=== PATIENT | female | born 1990 | race African-American/Black ===

== ENCOUNTER 2016-11-12 18:09 | Emergency (ER) | payer OTHER ==
[~2016-11-12] VITALS: Ht 154.9 cm; Wt 85.7 kg
[2016-11-12 18:55] LABS: BASO # 0.1 10*3/uL (0.0-0.1); BASO % 0.4 % (0.0-1.0); EOS # 0.2 10*3/uL (0.0-0.4); EOS % 1.5 % (1.0-4.0); HEMATOCRIT 43.5 % (37.0-47.0); HEMOGLOBIN 14.1 g/dl (12.0-16.0); IG # 0.1 10*3/uL (0.0-0.1); LYMPH % 14.6 % (27.0-41.0); MEAN CELL VOLUME 86.3 fl (81.0-99.0); MEAN CORPUSCULAR HGB CONC 32.4 g/dl (33.0-37.0); MEAN PLATELET VOLUME 10.4 fl (9.6-12.3); MONO # 0.8 10*3/uL (0.1-1.0); MONO % 5.5 % (3.0-9.0); NEUT # 10.8 10*3/uL (2.3-7.9); NEUT % 77.4 % (47.0-73.0); PLATELET COUNT AUTOMATED 273 10*3/uL (130-400); RED BLOOD COUNT 5.04 10*6/uL (4.10-5.10); WHITE BLOOD COUNT 13.9 10*3/uL (4.8-10.8)
[2016-11-12 19:06] LABS: BILIRUBIN NEGATIVE (NEGATIVE); BLOOD TRACE-INTACT (NEGATIVE); CLARITY SL CLOUDY (CLEAR); COLOR YELLOW (YELLOW); GLUCOSE NEGATIVE (NEGATIVE); KETONE NEGATIVE (NEGATIVE); LEUKO ESTERASE NEGATIVE (NEGATIVE); NITRITE NEGATIVE (NEGATIVE); PH 6.5 (5.0-9.0); PROTEIN TRACE (NEGATIVE); SPECIFIC GRAVITY 1.025 (1.005-1.030); UROBILINOGEN 0.2 E.U./dl (0.2-1.0)
[2016-11-12 19:09] LABS: ALBUMIN 3.9 gm/dl (3.1-4.5); ALKALINE PHOSPHATASE 92 U/L (45-117); BILIRUBIN, TOTAL 0.2 mg/dl (0.2-1.0); BUN 9 mg/dl (7-24); CARBON DIOXIDE 26 mmol/L (21-32); CHLORIDE 112 mmol/L (98-107); EST GLOM FILT AFRICAN AMERICAN > 60 ml/min; GLUCOSE 95 mg/dL (65-99); POTASSIUM 4.1 mmol/L (3.5-5.1); SGOT/AST 43 IU/L (3-35); SGPT/ALT 29 U/L (12-78); SODIUM 146 mmol/L (136-145); TOTAL PROTEIN 7.7 gm/dL (6.4-8.2)
[2016-11-12 19:15] LABS: BACTERIA 2+; MUCOUS 1+; URINE REFLEX COMMENT YES (NO)
== END 2016-11-12 21:11 | disposition home or self-care (01) ==
LOC: ED 18:09
PROVIDERS: Registered Nurse
DX: K80.20 Calculus of gallbladder without cholecystitis without obstruction (principal); F17.200 Nicotine dependence, unspecified, uncomplicated

== ENCOUNTER 2018-10-14 08:51 | Emergency (ER) | payer OTHER ==
[~2018-10-14] VITALS: Ht 154.9 cm; Wt 83.9 kg
[2018-10-14 09:08] LABS: BILIRUBIN NEGATIVE (NEGATIVE); BLOOD NEGATIVE (NEGATIVE); CLARITY SL CLOUDY (CLEAR); COLOR YELLOW (YELLOW); GLUCOSE NEGATIVE (NEGATIVE); KETONE NEGATIVE (NEGATIVE); LEUKO ESTERASE 1+ (NEGATIVE); NITRITE NEGATIVE (NEGATIVE); PH 6.5 (5.0-9.0)
[2018-10-14 09:28] LABS: BACTERIA 1+; EPITHELIAL CELLS 21-30; WBC 16-20 wbc/hpf (0-5)
[2018-10-14] MEDS ORDERED: MACROBID100 M1 PO (10:11)
[2018-10-14] MEDS ORDERED: PYRIDIUM200 M1 PO (10:11)
[2018-10-16 06:08] LABS: GONOCOCCUS BY NAA Negative (Negative)
== END 2018-10-14 10:20 | disposition home or self-care (01) ==
LOC: ED 08:51
PROVIDERS: Emergency Medicine; Nurse Practitioner Family
DX: N39.0 Urinary tract infection, site not specified (principal); N89.8 Other specified noninflammatory disorders of vagina; Z11.3 Encounter for screening for infections with a predominantly sexual mode of transmission; F17.200 Nicotine dependence, unspecified, uncomplicated

== ENCOUNTER 2019-04-29 12:24 | Inpatient (IN) | payer OTHER ==
[~2019-04-29] VITALS: Ht 154.9 cm; Wt 80.0 kg
[~2019-04-29 12:24] MED LIST: MACROBID100 M1 PO; PYRIDIUM200 M1 PO
[2019-04-29 12:25] VITALS: BP 160/90
[2019-04-29 13:03] LABS: BILIRUBIN NEGATIVE (NEGATIVE); BLOOD 2+ (NEGATIVE); CLARITY SL CLOUDY (CLEAR); COLOR YELLOW (YELLOW); GLUCOSE NEGATIVE (NEGATIVE); KETONE NEGATIVE (NEGATIVE); LEUKO ESTERASE NEGATIVE (NEGATIVE); NITRITE NEGATIVE (NEGATIVE); SPECIFIC GRAVITY 1.015 (1.005-1.030)
[2019-04-29 13:14] LABS: BACTERIA 2+; EPITHELIAL CELLS 15-20; MUCOUS 2+
[2019-04-29 13:15] LABS: URINE AMPHETAMINES < 1000 (1000ng/ml); URINE BARBITURATES < 200 (200ng/ml); URINE BENZODIAZEPINES < 200 (200ng/ml); URINE CANNABINOIDS (THC) > 50 (50ng/ml); URINE COCAINE < 300 (300ng/ml); URINE METHADONE < 300 (300ng/ml); URINE OPIATES < 300 (300ng/ml)
[2019-04-29 13:18] LABS: URINE PHENCYCLIDINE < 25 (25ng/ml)
--- NOTE | 2019-04-29 13:59 | NUR ---
PATIENT WISHES TO STAY IN HER PERSONAL CLOTHES.
[2019-04-29 14:20] VITALS: BP 154/98
--- NOTE | 2019-04-29 14:27 | NUR ---
Time: 1419 A 28 year old FEMALE admitted to under services of SONDRA KING DO. Pt. arrived via wheel chair from ER. Chief complaint: HERE FOR ADMISSION TO [facility]. ALEX JAUREGUI
[2019-04-29 14:30] VITALS: BP 154/98
--- NOTE | 2019-04-29 15:04 | NUR ---
PATIENT MEETS [facility]. [facility] STAFF WILL FOLLOW UP WITH PATIENT. COCO WENIBERG B.A. EMERGENCY VEHICLE DISPATCHER
[2019-04-29 15:28] LABS: BASO % 0.4 % (0.0-1.0); EOS % 0.1 % (1.0-4.0); HEMATOCRIT 44.1 % (37.0-47.0); HEMOGLOBIN 13.6 g/dl (12.0-16.0); LYMPH # 1.3 10*3/uL (1.3-4.4); LYMPH % 16.1 % (27.0-41.0); MEAN CELL VOLUME 85.3 fl (81.0-99.0); MEAN CORPUSCULAR HGB 26.3 pg (27.0-31.0); MEAN CORPUSCULAR HGB CONC 30.8 g/dl (33.0-37.0); MEAN PLATELET VOLUME 10.4 fl (9.6-12.3); MONO # 0.4 10*3/uL (0.1-1.0); MONO % 5.3 % (3.0-9.0); NEUT # 6.3 10*3/uL (2.3-7.9); NEUT % 77.6 % (47.0-73.0); PLATELET COUNT AUTOMATED 262 10*3/uL (130-400); RED BLOOD COUNT 5.17 10*6/uL (4.10-5.10); RED CELL DISTRI WIDTH 12.6 % (0-14.5); WHITE BLOOD COUNT 8.1 10*3/uL (4.8-10.8)
[2019-04-29 15:44] LABS: ALBUMIN 3.6 gm/dl (3.1-4.5); ALKALINE PHOSPHATASE 75 U/L (45-117); BUN 7 mg/dl (7-24); CHLORIDE 108 mmol/L (98-107); CREATININE 0.78 mg/dL (0.55-1.02); POTASSIUM 4.7 mmol/L (3.5-5.1); SGOT/AST 37 IU/L (3-35); SGPT/ALT 57 U/L (12-78); SODIUM 140 mmol/L (136-145)
[2019-04-29 15:48] LABS: BETA-HCG, QUANT < 1.0 mIU/mL (1-3); ETHYL ALCOHOL < 3.0 mg/dl (<3)
--- NOTE | 2019-04-29 15:55 | NUR ---
Medicated with vistaril for anxiety and robaxin for muscle aches.
[2019-04-29 16:00] VITALS: BP 142/66
--- NOTE | 2019-04-29 16:10 | NUR ---
[facility] STAFF SPOKE WITH PATIENT. [facility] STAFF PROVIDED PATIENT WITH REFERRAL OPTIONS. [facility] STAFF WILL FOLLOW BACK UP WITH PATIENT. COCO WEINBERG B.A. SUPERINTENDENT FACTORY
--- NOTE | 2019-04-29 17:00 | NUR ---
Received call from Irma Stinson working on fourth floor where pt boyfriend is. States that pt may visit her boy friend if she is escorted by security there and back. Irma states she discussed this with Dr. Estrada.
--- NOTE | 2019-04-29 18:55 | NUR ---
DR TERESA MADE AWARE OF SUBOXONE BEING ORDERED INSTEAD OF SUBUTEX FOR PATIENT
--- NOTE | 2019-04-29 18:59 | NUR ---
DR TERESA CALLED BACK AND STATED "I BELIEVE THE PATIENT WILL BE FINE GETTING THE SUBOXONE INSTEAD OF SUBUTEX"
[2019-04-29 20:00] VITALS: BP 153/89
--- NOTE | 2019-04-29 20:00 | NUR ---
PATIENT REMINDED TO NOT LEAVE THE FLOOR. VERBALIZED UNDERSTANDING
--- NOTE | 2019-04-29 22:03 | NUR ---
MEDICATED WITH PRN VISTARIL,MORTIN,ROBAXIN,REQUIP,AND TRAZADONE FOR WITHDRAWAL SYMPTOMS. WILL MONITOR
[2019-04-30] VITALS: BP 134/67
--- NOTE | 2019-04-30 03:48 | NUR ---
RESTING IN BED WITH NO NEEDS MADE. BED IN LOWEST POSITION, CALL LIGHT IN REACH
--- NOTE | 2019-04-30 05:30 | NUR ---
MEDICATED WITH PRN MOTRIN,ROBAXIN AND VISTARIL FOR WITHDRAWAL SYMPTOMS. WILL MONITOR
[2019-04-30 08:00] VITALS: BP 130/69
--- NOTE | 2019-04-30 08:26 | NUR ---
PT RESTING IN BED. RESP-EASY AND REGULAR. DENIES ANY COMPLAINTS AT THIS TIME. TOLERATED ROUTINE MED WITH NO PROBLEM. CALL LIGHT IN REACH. SEE SHIFT ASSESSMENT.
[2019-04-30 12:00] VITALS: BP 134/64
--- NOTE | 2019-04-30 12:07 | NUR ---
MEDICATED WITH REQUIP FOR RESTLESS LEGS, ROBAXIN FOR MUSCLE ACHES AND VISTARIL FOR ANXIETY SEE EMAR. CALL LIGHT IN REACH.
--- NOTE | 2019-04-30 12:56 | NUR ---
Patient resting. Responding to scheduled medications with fewer complaints of pain and anxiety.
--- NOTE | 2019-04-30 13:07 | NUR ---
PT RESTING IN BED. TOLERATED ROUTINE SUBUTEX PER ORDER FOR WITHDRAWAL SYMPTOMS. SEE EMAR. CALL LIGHT IN REACH.
--- NOTE | 2019-04-30 14:01 | NUR ---
PATIENT IS WANTING TO FOLLOW UP WITH [employer] [facility] IN [place] FOR HER AFTERCARE PLAN. PATIENT IS WANTED MEDICATION ASSISTED TREATMENT. PATIENT AGREES AND UNDERSTANDS HER AFTERCARE PLAN. COCO WEINBERG B.A. ATTENDANCE SECRETARY
--- NOTE | 2019-04-30 14:33 | NUR ---
PT AMBULATORY OFF THE FLOOR WITH BOYFRIEND. LEFT AMA PAPER SIGNED. NOTIFIED COORDINATOR OF LIBRARY SERVICES AND GIANLUCA HAY.
== END 2019-04-30 14:35 | disposition left against medical advice (07) | DRG 770 ==
LOC: ED 12:24 → EDHOLD 14:04 → 4E 14:04
PROVIDERS: Emergency Medicine; Family Medicine; ADMIT Internal Medicine
DX: F11.23 Opioid dependence with withdrawal (principal); E87.8 Other disorders of electrolyte and fluid balance, not elsewhere classified; E44.0 Moderate protein-calorie malnutrition; F17.200 Nicotine dependence, unspecified, uncomplicated; R74.0 Nonspecific elevation of levels of transaminase and lactic acid dehydrogenase [LDH]; R23.2 Flushing; F39 Unspecified mood [affective] disorder; D72.9 Disorder of white blood cells, unspecified; D72.820 Lymphocytosis (symptomatic); R73.9 Hyperglycemia, unspecified; R31.9 Hematuria, unspecified; R61 Generalized hyperhidrosis; F12.90 Cannabis use, unspecified, uncomplicated; F19.90 Other psychoactive substance use, unspecified, uncomplicated; Z53.21 Procedure and treatment not carried out due to patient leaving prior to being seen by health care provider; Z68.33 Body mass index [BMI] 33.0-33.9, adult; Z79.899 Other long term (current) drug therapy; Z87.440 Personal history of urinary (tract) infections; Z98.891 History of uterine scar from previous surgery; Z82.49 Family history of ischemic heart disease and other diseases of the circulatory system; Z83.3 Family history of diabetes mellitus

== ENCOUNTER 2019-07-08 10:29 | Inpatient (IN) | payer OTHER ==
[~2019-07-08] VITALS: Ht 154.9 cm; Wt 81.8 kg
[2019-07-08 10:32] VITALS: BP 187/122
[2019-07-08 11:12] LABS: BILIRUBIN NEGATIVE (NEGATIVE); BLOOD NEGATIVE (NEGATIVE); CLARITY CLOUDY (CLEAR); COLOR YELLOW (YELLOW); GLUCOSE NEGATIVE (NEGATIVE); KETONE NEGATIVE (NEGATIVE); LEUKO ESTERASE NEGATIVE (NEGATIVE); NITRITE NEGATIVE (NEGATIVE); UROBILINOGEN 0.2 E.U./dl (0.2-1.0)
[2019-07-08 11:15] LABS: BACTERIA 2+; CALCIUM OXALATE CRYSTALS 4+; EPITHELIAL CELLS 30-40
[2019-07-08 11:24] LABS: BASO # 0.1 10*3/uL (0.0-0.1); BASO % 0.8 % (0.0-1.0); EOS # 0.1 10*3/uL (0.0-0.4); EOS % 0.9 % (1.0-4.0); HEMATOCRIT 47.9 % (37.0-47.0); HEMOGLOBIN 14.8 g/dl (12.0-16.0); LYMPH # 0.8 10*3/uL (1.3-4.4); LYMPH % 12.3 % (27.0-41.0); MEAN CELL VOLUME 85.1 fl (81.0-99.0); MEAN CORPUSCULAR HGB 26.3 pg (27.0-31.0); MEAN CORPUSCULAR HGB CONC 30.9 g/dl (33.0-37.0); MEAN PLATELET VOLUME 10.7 fl (9.6-12.3); MONO # 0.6 10*3/uL (0.1-1.0); MONO % 8.6 % (3.0-9.0); NEUT # 4.9 10*3/uL (2.3-7.9); NEUT % 75.9 % (47.0-73.0); PLATELET COUNT AUTOMATED 253 10*3/uL (130-400); RED BLOOD COUNT 5.63 10*6/uL (4.10-5.10); RED CELL DISTRI WIDTH 13.2 % (0-14.5); WHITE BLOOD COUNT 6.5 10*3/uL (4.8-10.8)
[2019-07-08 11:39] LABS: ALBUMIN 3.9 gm/dl (3.1-4.5); ALKALINE PHOSPHATASE 159 U/L (45-117); BUN 9 mg/dl (7-24); CHLORIDE 108 mmol/L (98-107); CREATININE 0.85 mg/dL (0.55-1.02); LIPASE 95 U/L (73-393); POTASSIUM 3.8 mmol/L (3.5-5.1); SGOT/AST 266 IU/L (3-35); SGPT/ALT 227 U/L (12-78); SODIUM 140 mmol/L (136-145); TOTAL PROTEIN 8.2 gm/dL (6.4-8.2)
[2019-07-08 11:42] LABS: BETA-HCG, QUANT < 1.0 mIU/mL (1-3)
[2019-07-08 13:16] VITALS: BP 170/92
[2019-07-08 14:50] VITALS: BP 150/90
[2019-07-08 20:00] VITALS: BP 137/82
[2019-07-09] VITALS (15 sets, daily range): BP systolic 142–195; BP diastolic 86–122
[2019-07-09 06:40] LABS: BASO % 0.9 % (0.0-1.0); EOS # 0.2 10*3/uL (0.0-0.4); EOS % 4.1 % (1.0-4.0); HEMATOCRIT 38.7 % (37.0-47.0); HEMOGLOBIN 11.8 g/dl (12.0-16.0); LYMPH # 0.9 10*3/uL (1.3-4.4); LYMPH % 19.9 % (27.0-41.0); MEAN CELL VOLUME 85.6 fl (81.0-99.0); MEAN CORPUSCULAR HGB 26.1 pg (27.0-31.0); MEAN CORPUSCULAR HGB CONC 30.5 g/dl (33.0-37.0); MEAN PLATELET VOLUME 11.2 fl (9.6-12.3); MONO # 0.4 10*3/uL (0.1-1.0); MONO % 9.3 % (3.0-9.0); NEUT % 65.6 % (47.0-73.0); PLATELET COUNT AUTOMATED 208 10*3/uL (130-400); RED BLOOD COUNT 4.52 10*6/uL (4.10-5.10); RED CELL DISTRI WIDTH 13.4 % (0-14.5); WHITE BLOOD COUNT 4.6 10*3/uL (4.8-10.8)
[2019-07-09 07:14] LABS: BUN 4 mg/dl (7-24); CHLORIDE 112 mmol/L (98-107); CHOLESTEROL 122 mg/dL (<200); CREATININE 0.76 mg/dL (0.55-1.02); PHOSPHOROUS 3.3 mg/dL (2.5-4.9); POTASSIUM 3.8 mmol/L (3.5-5.1); SODIUM 141 mmol/L (136-145); TRIGLYCERIDES 78 mg/dl (<150); VLDL CHOLESTEROL 16 mg/dL (6-40)
[2019-07-09 07:23] LABS: HDL CHOLESTEROL 48 mg/dl (40-60); LDL CHOLESTEROL 58 mg/dL (9-159)
[2019-07-10] VITALS: BP 139/40; BP 139/90
[2019-07-10 06:14] LABS: BUN 3 mg/dl (7-24); CHLORIDE 111 mmol/L (98-107); CREATININE 0.75 mg/dL (0.55-1.02); POTASSIUM 3.2 mmol/L (3.5-5.1); SGOT/AST 418 IU/L (3-35); SGPT/ALT 429 U/L (12-78); SODIUM 142 mmol/L (136-145); TOTAL PROTEIN 6.2 gm/dL (6.4-8.2)
[2019-07-10 06:15] LABS: ALKALINE PHOSPHATASE 97 U/L (45-117); BASO # 0.1 10*3/uL (0.0-0.1); BASO % 0.8 % (0.0-1.0); EOS # 0.2 10*3/uL (0.0-0.4); EOS % 2.7 % (1.0-4.0); HEMOGLOBIN 13.3 g/dl (12.0-16.0); LYMPH % 17.5 % (27.0-41.0); MEAN CELL VOLUME 84.6 fl (81.0-99.0); MEAN CORPUSCULAR HGB 26.2 pg (27.0-31.0); MEAN CORPUSCULAR HGB CONC 30.9 g/dl (33.0-37.0); MEAN PLATELET VOLUME 11.6 fl (9.6-12.3); MONO # 0.7 10*3/uL (0.1-1.0); MONO % 11.3 % (3.0-9.0); NEUT % 67.2 % (47.0-73.0); PLATELET COUNT AUTOMATED 210 10*3/uL (130-400); RED BLOOD COUNT 5.08 10*6/uL (4.10-5.10); RED CELL DISTRI WIDTH 13.6 % (0-14.5)
[2019-07-10 08:00] VITALS: BP 162/90
[2019-07-10 12:00] VITALS: BP 154/16
== END 2019-07-10 15:35 | disposition home or self-care (01) | DRG 710 ==
LOC: ED 10:29 → EDHOLD 13:48 → 5E 13:48 → 4E 07-09 15:37
PROVIDERS: Emergency Medicine; Student in an Organized Health Care Education/Training Program; Surgery; ADMIT Family Medicine
PROC: 0FT44ZZ Resection of Gallbladder, Percutaneous Endoscopic Approach (ICD-10-PCS; principal; 2019-07-09)
PROC: 0F798DZ Dilation of Common Bile Duct with Intraluminal Device, Via Natural or Artificial Opening Endoscopic (ICD-10-PCS; 2019-07-09)
PROC: BF101ZZ Fluoroscopy of Bile Ducts using Low Osmolar Contrast (ICD-10-PCS; 2019-07-09)
DX: A41.9 Sepsis, unspecified organism (principal); K80.00 Calculus of gallbladder with acute cholecystitis without obstruction; E87.2 Acidosis; K83.8 Other specified diseases of biliary tract; R74.0 Nonspecific elevation of levels of transaminase and lactic acid dehydrogenase [LDH]; E87.8 Other disorders of electrolyte and fluid balance, not elsewhere classified; R65.20 Severe sepsis without septic shock; D72.810 Lymphocytopenia; F39 Unspecified mood [affective] disorder; F17.210 Nicotine dependence, cigarettes, uncomplicated; Z83.3 Family history of diabetes mellitus; Z82.49 Family history of ischemic heart disease and other diseases of the circulatory system; Z79.899 Other long term (current) drug therapy

== ENCOUNTER 2020-06-01 06:46 | Emergency (ER) | payer OTHER | END 2020-06-01 08:48 | disposition home or self-care (01) | LOC: ED 06:46 | DX: T16.2XXA Foreign body in left ear, initial encounter (principal); X58.XXXA Exposure to other specified factors, initial encounter; Y93.89 Activity, other specified; Y92.89 Other specified places as the place of occurrence of the external cause; Y99.8 Other external cause status ==

== ENCOUNTER 2021-01-29 04:51 | Inpatient (IN) | payer OTHER ==
[~2021-01-29] VITALS: Ht 154.9 cm; Wt 82.6 kg
[2021-01-29 05:01] VITALS: BP 157/86
[2021-01-29 06:11] LABS: ALKALINE PHOSPHATASE 81 U/L (45-117); BUN 7 mg/dl (7-24); CHLORIDE 100 mmol/L (98-107); CREATININE 0.76 mg/dL (0.55-1.02); POTASSIUM 3.4 mmol/L (3.5-5.1); SGOT/AST 12 IU/L (3-35); SGPT/ALT 11 U/L (12-78); SODIUM 136 mmol/L (136-145); TOTAL PROTEIN 8.2 gm/dL (6.4-8.2)
[2021-01-29 06:13] LABS: BASO # 0.1 10*3/uL (0.0-0.1); BASO % 0.3 % (0.0-1.0); EOS % 0.1 % (1.0-4.0); HEMATOCRIT 35.1 % (37.0-47.0); LYMPH # 2.2 10*3/uL (1.3-4.4); LYMPH % 12.6 % (27.0-41.0); MEAN CELL VOLUME 77.7 fl (81.0-99.0); MEAN CORPUSCULAR HGB CONC 29.6 g/dl (33.0-37.0); MEAN PLATELET VOLUME 10.6 fl (9.6-12.3); MONO # 1.5 10*3/uL (0.1-1.0); MONO % 8.4 % (3.0-9.0); NEUT # 13.8 10*3/uL (2.3-7.9); NEUT % 77.8 % (47.0-73.0); PLATELET COUNT AUTOMATED 395 10*3/uL (130-400); RED BLOOD COUNT 4.52 10*6/uL (4.10-5.10); RED CELL DISTRI WIDTH 14.4 % (0-14.5); WHITE BLOOD COUNT 17.7 10*3/uL (4.8-10.8)
[2021-01-29 10:30] VITALS: BP 131/82
[2021-01-29 13:10] VITALS: BP 104/60
[2021-01-29 13:25] VITALS: BP 98/55
[2021-01-29 13:40] VITALS: BP 97/58
[2021-01-29 13:45] VITALS: BP 125/72
[2021-01-29] MEDS ORDERED: DOXYCYCLINE100 M3 PO (14:24)
== END 2021-01-29 15:24 | disposition home or self-care (01) | DRG 720 ==
LOC: ED 04:51 → EDHOLD 06:48 → 4E 09:43
PROVIDERS: Emergency Medicine; ADMIT Emergency Medicine; ATTEND Emergency Medicine
PROC: 0H9CXZZ Drainage of Left Upper Arm Skin, External Approach (ICD-10-PCS; principal; 2021-01-29)
DX: A41.9 Sepsis, unspecified organism (principal); L02.414 Cutaneous abscess of left upper limb; L03.114 Cellulitis of left upper limb; F11.10 Opioid abuse, uncomplicated; R03.0 Elevated blood-pressure reading, without diagnosis of hypertension; D50.9 Iron deficiency anemia, unspecified; E87.6 Hypokalemia; R70.0 Elevated erythrocyte sedimentation rate; R73.9 Hyperglycemia, unspecified; E44.0 Moderate protein-calorie malnutrition; F17.210 Nicotine dependence, cigarettes, uncomplicated; Z71.6 Tobacco abuse counseling; Z98.891 History of uterine scar from previous surgery; Z82.49 Family history of ischemic heart disease and other diseases of the circulatory system; Z90.49 Acquired absence of other specified parts of digestive tract; Z79.2 Long term (current) use of antibiotics; Z79.899 Other long term (current) drug therapy; Z83.3 Family history of diabetes mellitus; Z68.34 Body mass index [BMI] 34.0-34.9, adult

== ENCOUNTER 2021-04-05 15:54 | Emergency (ER) | payer OTHER ==
[~2021-04-05] VITALS: Ht 154.9 cm; Wt 81.6 kg
[~2021-04-05 15:54] MED LIST changes: +DOXYCYCLINE100 M3 PO
[2021-04-05 18:06] LABS: BASO # 0.1 10*3/uL (0.0-0.1); BASO % 0.8 % (0.0-1.0); EOS # 0.2 10*3/uL (0.0-0.4); EOS % 2.1 % (1.0-4.0); HEMATOCRIT 44.2 % (37.0-47.0); LYMPH # 1.5 10*3/uL (1.3-4.4); LYMPH % 18.4 % (27.0-41.0); MEAN CORPUSCULAR HGB 23.6 pg (27.0-31.0); MEAN CORPUSCULAR HGB CONC 28.1 g/dl (33.0-37.0); MEAN PLATELET VOLUME 10.3 fl (9.6-12.3); MONO # 0.8 10*3/uL (0.1-1.0); MONO % 10.3 % (3.0-9.0); NEUT # 5.4 10*3/uL (2.3-7.9); NEUT % 67.6 % (47.0-73.0); PLATELET COUNT AUTOMATED 295 10*3/uL (130-400); RED BLOOD COUNT 5.26 10*6/uL (4.10-5.10); RED CELL DISTRI WIDTH 14.7 % (0-14.5)
[2021-04-05 18:26] LABS: ALBUMIN 3.1 gm/dl (3.1-4.5); ALKALINE PHOSPHATASE 80 U/L (45-117); BUN 12 mg/dl (7-24); CHLORIDE 105 mmol/L (98-107); CREATININE 0.63 mg/dL (0.55-1.02); SGOT/AST 8 IU/L (3-35); SGPT/ALT 19 U/L (12-78); SODIUM 133 mmol/L (136-145); TOTAL PROTEIN 7.8 gm/dL (6.4-8.2)
[2021-04-05] MEDS ORDERED: DIFLUCAN150 MG PO (19:43)
[2021-04-05] MEDS ORDERED: SEPTDS PO (19:43)
[2021-04-05] MEDS ORDERED: INDOMETHACIN ER75 M1 PO (19:43)
== END 2021-04-05 19:50 | disposition home or self-care (01) ==
LOC: ED 15:54
PROVIDERS: Physician Assistant
DX: M25.462 Effusion, left knee (principal)

== ENCOUNTER 2022-02-14 00:34 | Emergency (ER) | payer OTHER ==
[~2022-02-14 00:34] MED LIST changes: +DIFLUCAN150 MG PO; +INDOMETHACIN ER75 M1 PO; +SEPTDS PO
== END 2022-02-14 03:13 | disposition home or self-care (01) ==
LOC: ED 00:34
DX: Z53.21 Procedure and treatment not carried out due to patient leaving prior to being seen by health care provider (principal)

== ENCOUNTER 2022-09-27 14:10 | Emergency (ER) | payer OTHER ==
[~2022-09-27] VITALS: Ht 152.4 cm; Wt 90.7 kg
[2022-09-27 15:24] LABS: BASO # 0.1 10*3/uL (0.0-0.1); BASO % 0.8 % (0.0-1.0); EOS % 0.2 % (1.0-4.0); LYMPH # 1.7 10*3/uL (1.3-4.4); LYMPH % 14.7 % (27.0-41.0); MEAN CELL VOLUME 76.9 fl (81.0-99.0); MEAN CORPUSCULAR HGB 23.6 pg (27.0-31.0); MEAN CORPUSCULAR HGB CONC 30.7 g/dl (33.0-37.0); MEAN PLATELET VOLUME 10.1 fl (9.6-12.3); MONO # 0.9 10*3/uL (0.1-1.0); MONO % 8.1 % (3.0-9.0); NEUT # 8.8 10*3/uL (2.3-7.9); NEUT % 75.6 % (47.0-73.0); PLATELET COUNT AUTOMATED 401 10*3/uL (130-400); RED BLOOD COUNT 5.46 10*6/uL (4.10-5.10); RED CELL DISTRI WIDTH 13.6 % (0-14.5); WHITE BLOOD COUNT 11.6 10*3/uL (4.8-10.8)
[2022-09-27 15:36] LABS: ACT PARTIAL THROMBO TIME 30.1 SECONDS (20.0-32.1)
[2022-09-27 15:42] LABS: ALKALINE PHOSPHATASE 82 U/L (46-116); BETA-HCG, QUANT < 3.0 mIU/mL (0-10); BUN 8 mg/dl (9-23); CHLORIDE 108 mmol/L (98-107); LIPASE 29 U/L (12-53); POTASSIUM 3.2 mmol/L (3.4-5.1); SGPT/ALT 11 U/L (10-49); TOTAL PROTEIN 8.5 gm/dL (6.0-8.0)
== END 2022-09-27 18:00 | disposition home or self-care (01) ==
LOC: ED 14:10
PROVIDERS: Physician Assistant
DX: I10 Essential (primary) hypertension (principal); Z90.49 Acquired absence of other specified parts of digestive tract; Z98.890 Other specified postprocedural states; Z87.891 Personal history of nicotine dependence

== ENCOUNTER 2022-12-11 14:04 | Emergency (ER) | payer OTHER ==
[~2022-12-11] VITALS: Ht 152.4 cm; Wt 90.7 kg
[~2022-12-11 14:04] MED LIST changes: +CEPHALEXIN500 M1 PO; +VANCOMYCIN1.5 GM/300 IV
[2022-12-11 14:34] LABS: BASO # 0.1 10*3/uL (0.0-0.1); EOS # 0.2 10*3/uL (0.0-0.4); EOS % 2.5 % (1.0-4.0); HEMATOCRIT 35.6 % (37.0-47.0); LYMPH # 1.9 10*3/uL (1.3-4.4); MEAN CELL VOLUME 78.8 fl (81.0-99.0); MEAN CORPUSCULAR HGB 23.5 pg (27.0-31.0); MEAN CORPUSCULAR HGB CONC 29.8 g/dl (33.0-37.0); MEAN PLATELET VOLUME 9.5 fl (9.6-12.3); MONO # 0.8 10*3/uL (0.1-1.0); MONO % 8.9 % (3.0-9.0); NEUT # 5.6 10*3/uL (2.3-7.9); NEUT % 64.3 % (47.0-73.0); PLATELET COUNT AUTOMATED 648 10*3/uL (130-400); RED BLOOD COUNT 4.52 10*6/uL (4.10-5.10); RED CELL DISTRI WIDTH 14.9 % (0-14.5); WHITE BLOOD COUNT 8.6 10*3/uL (4.8-10.8)
[2022-12-11 15:09] LABS: POTASSIUM 4.6 mmol/L (3.4-5.1); TOTAL PROTEIN 8.5 gm/dL (6.0-8.0)
== END 2022-12-11 17:13 | disposition home or self-care (01) ==
LOC: ED 14:04
PROVIDERS: Emergency Medicine
DX: R10.32 Left lower quadrant pain (principal); Z90.49 Acquired absence of other specified parts of digestive tract; Z98.890 Other specified postprocedural states; F17.200 Nicotine dependence, unspecified, uncomplicated; F19.90 Other psychoactive substance use, unspecified, uncomplicated

== ENCOUNTER → 2022-12-26 | Outpatient (CLI) | payer OTHER ==
[2022-12-26 16:08] LABS: BASO # 0.1 10*3/uL (0.0-0.1); BASO % 0.7 % (0.0-1.0); EOS # 0.2 10*3/uL (0.0-0.4); EOS % 2.8 % (1.0-4.0); HEMATOCRIT 33.7 % (37.0-47.0); LYMPH # 1.3 10*3/uL (1.3-4.4); LYMPH % 18.4 % (27.0-41.0); MEAN CELL VOLUME 77.1 fl (81.0-99.0); MEAN CORPUSCULAR HGB 23.1 pg (27.0-31.0); MEAN PLATELET VOLUME 9.8 fl (9.6-12.3); MONO # 0.7 10*3/uL (0.1-1.0); MONO % 9.8 % (3.0-9.0); NEUT # 4.6 10*3/uL (2.3-7.9); NEUT % 67.9 % (47.0-73.0); PLATELET COUNT AUTOMATED 330 10*3/uL (130-400); RED BLOOD COUNT 4.37 10*6/uL (4.10-5.10); RED CELL DISTRI WIDTH 15.7 % (0-14.5); WHITE BLOOD COUNT 6.8 10*3/uL (4.8-10.8)
== END | disposition home or self-care (01) ==
LOC: LAB 15:35
DX: I07.9 Rheumatic tricuspid valve disease, unspecified (principal)

== ENCOUNTER 2023-04-11 20:01 | Emergency (ER) | payer OTHER ==
[~2023-04-11] VITALS: Ht 152.4 cm; Wt 90.7 kg
[2023-04-11 20:42] LABS: BILIRUBIN Negative (Negative); BLOOD Negative (Negative); CLARITY Clear (Clear); COLOR Yellow (Yellow); GLUCOSE Negative (Negative); KETONE Negative (Negative); LEUKO ESTERASE Negative (Negative); NITRITE Negative (Negative); SPECIFIC GRAVITY >= 1.030 (1.001-1.030); UROBILINOGEN 0.2 E.U./dl (0.0-1.0)
[2023-04-11 20:51] LABS: BASO # 0.1 10*3/uL (0.0-0.1); BASO % 0.4 % (0.0-1.0); EOS % 0.2 % (1.0-4.0); HEMATOCRIT 36.8 % (37.0-47.0); LYMPH # 1.4 10*3/uL (1.3-4.4); LYMPH % 11.5 % (27.0-41.0); MEAN CELL VOLUME 76.3 fl (81.0-99.0); MEAN CORPUSCULAR HGB 22.4 pg (27.0-31.0); MEAN CORPUSCULAR HGB CONC 29.3 g/dl (33.0-37.0); MONO % 7.8 % (3.0-9.0); NEUT % 79.8 % (47.0-73.0); PLATELET COUNT AUTOMATED 350 10*3/uL (130-400); RED BLOOD COUNT 4.82 10*6/uL (4.10-5.10); RED CELL DISTRI WIDTH 15.2 % (0-14.5); WHITE BLOOD COUNT 12.5 10*3/uL (4.8-10.8)
[2023-04-11 20:57] LABS: MUCOUS 1+
[2023-04-11 20:58] LABS: BACTERIA 2+; WBC 16-20 wbc/hpf (0-5)
[2023-04-11 21:14] LABS: ALKALINE PHOSPHATASE 89 U/L (46-116); BUN 8 mg/dl (9-23); CHLORIDE 106 mmol/L (98-107); LIPASE 26 U/L (12-53); POTASSIUM 3.5 mmol/L (3.4-5.1); SGPT/ALT 51 U/L (5-49); TOTAL PROTEIN 8.3 gm/dL (6.0-8.0)
[2023-04-11 21:25] LABS: ACT PARTIAL THROMBO TIME 33.8 SECONDS (20.0-32.1)
[2023-04-11] MEDS ORDERED: CIPRO500 MG PO (22:52)
== END 2023-04-11 23:12 | disposition home or self-care (01) ==
LOC: ED 20:01
PROVIDERS: Internal Medicine
DX: N39.0 Urinary tract infection, site not specified (principal); I10 Essential (primary) hypertension; F17.200 Nicotine dependence, unspecified, uncomplicated; Z79.899 Other long term (current) drug therapy; Z98.890 Other specified postprocedural states

== ENCOUNTER 2024-05-20 13:52 | Inpatient (IN) | payer OTHER ==
[~2024-05-20] VITALS: Ht 152.4 cm; Wt 90.7 kg
[~2024-05-20 13:52] MED LIST changes: +CIPRO500 MG PO
[2024-05-20 14:05] VITALS: BP 158/98
[2024-05-20] MEDS ORDERED: SUBOXONE 8 MG-1 EACH BC (14:07)
[2024-05-20 15:26] LABS: HEMATOCRIT 34.2 % (37.0-47.0); MEAN CELL VOLUME 81.4 fl (81.0-99.0); MEAN CORPUSCULAR HGB 23.8 pg (27.0-31.0); MEAN CORPUSCULAR HGB CONC 29.2 g/dl (33.0-37.0); MEAN PLATELET VOLUME 10.8 fl (9.6-12.3); PLATELET COUNT AUTOMATED 344 10*3/uL (130-400); RED CELL DISTRI WIDTH 14.2 % (0-14.5); WHITE BLOOD COUNT 15.4 10*3/uL (4.8-10.8)
[2024-05-20 15:30] LABS: MANUAL DIFF REFLEX YES
[2024-05-20 15:46] LABS: BUN 8 mg/dl (9-23); CHLORIDE 107 mmol/L (98-107); POTASSIUM 3.8 mmol/L (3.4-5.1)
[2024-05-20 15:48] LABS: OVALOCYTES FEW; PLATELET SUFFICIENCY NORMAL (NORMAL); POLYCHROMASIA SLIGHT; TOTAL CELLS COUNTED 100 #CELLS
[2024-05-20] MEDS ORDERED: Vancomycin Hydrochloride 250 ML IV ONE (15:50)
[2024-05-20] MEDS ORDERED: Ketorolac Tromethamine 30 MG/ML VIAL IV ONE (15:55)
[2024-05-20] MEDS ORDERED: Acetaminophen/Hydrocodone 5 MG/325 MG TABLET PO PRN (17:15)
[2024-05-20] MEDS ORDERED: ACETAMINOPHEN 650 MG SUPP R PRN (17:15)
[2024-05-20] MEDS ORDERED: Magnesium Hydroxide 30 ML UDC PO PRN (17:15)
[2024-05-20] MEDS ORDERED: ACETAMINOPHEN 325 MG TAB PO PRN (17:15)
[2024-05-20] MEDS ORDERED: TEMAZEPAM 15 MG CAP PO PRN (17:15)
[2024-05-20] MEDS ORDERED: Ondansetron Hydrochloride 4 MG/2 ML VIAL IV PRN (17:15)
[2024-05-20] MEDS ORDERED: BISACODYL 5 MG TAB PO PRN (17:15)
[2024-05-20] MEDS ORDERED: BISACODYL 10 MG SUPP R PRN (17:15)
[2024-05-20] MEDS ORDERED: MORPHINE Sulfate 2 MG/ML SYR IV PRN (17:15)
[2024-05-20] MEDS ORDERED: Pantoprazole Sodium 40 MG TAB PO PRN (17:20)
[2024-05-20] MEDS ORDERED: Dicyclomine Hydrochloride 20 MG TAB PO PRN (17:25)
[2024-05-20] MEDS ORDERED: METHOCARBAMOL 750 MG TAB PO PRN (17:25)
[2024-05-20] MEDS ORDERED: diphenhydrAMINE hydrochloride 50 MG/ML VIAL IV PRN (17:25)
[2024-05-20] MEDS ORDERED: hydrOXYzine 50 MG CAP PO PRN (17:25)
[2024-05-20] MEDS ORDERED: SODIUM CHLORIDE 0.9% 1,000 ML IV SCH (17:35)
[2024-05-20] MEDS ORDERED: Nicotine 21 MG PATCH T SCH (17:49)
[2024-05-20] MEDS ORDERED: Piperacillin Sodium/Tazobact 50 ML IV SCH (18:00)
[2024-05-20] MEDS ORDERED: Buprenorphine Hydrochloride 2 MG TAB SL SCH (18:00)
[2024-05-20 19:42] VITALS: BP 147/78
[2024-05-20] MEDS ORDERED: Chlordiazepoxide Hydrochlori 25 MG CAP PO SCH (20:00)
[2024-05-20 21:10] VITALS: BP 111/47
[2024-05-21] VITALS: BP 124/67
[2024-05-21] MEDS ORDERED: Ketorolac Tromethamine 15 MG/ML VIAL IV ONE (03:45)
[2024-05-21] MEDS ORDERED: Vancomycin Hydrochloride 1,000 MG in SODIUM CHLORIDE 0.9% 250 ML IV SCH (04:00)
[2024-05-21 06:15] LABS: BASO # 0.1 10*3/uL (0.0-0.1); BASO % 0.5 % (0.0-1.0); EOS # 0.4 10*3/uL (0.0-0.4); EOS % 4.1 % (1.0-4.0); HEMATOCRIT 29.7 % (37.0-47.0); MEAN CELL VOLUME 80.9 fl (81.0-99.0); MEAN CORPUSCULAR HGB 24.3 pg (27.0-31.0); MEAN PLATELET VOLUME 10.8 fl (9.6-12.3); MONO # 1.3 10*3/uL (0.1-1.0); MONO % 12.8 % (3.0-9.0); NEUT # 7.1 10*3/uL (2.3-7.9); NEUT % 69.4 % (47.0-73.0); PLATELET COUNT AUTOMATED 319 10*3/uL (130-400); RED BLOOD COUNT 3.67 10*6/uL (4.10-5.10); RED CELL DISTRI WIDTH 14.3 % (0-14.5); WHITE BLOOD COUNT 10.2 10*3/uL (4.8-10.8)
[2024-05-21 06:19] LABS: ALKALINE PHOSPHATASE 64 U/L (46-116); BUN 11 mg/dl (9-23); CHLORIDE 108 mmol/L (98-107); CHOLESTEROL 88 mg/dL (<200); FREE T4 1.24 ng/dl (0.89-1.76); LDL CHOLESTEROL 42 mg/dL (9-159); POTASSIUM 3.4 mmol/L (3.4-5.1); SGPT/ALT 21 U/L (5-49); TOTAL PROTEIN 6.2 gm/dL (6.0-8.0); TRIGLYCERIDES 63 mg/dl (<150)
[2024-05-21 08:00] VITALS: BP 123/64
[2024-05-21] MEDS ORDERED: Sodium Hypochlorite 0.25% (1/2 STRENGTH DAKIN'S) 480 ML SOL T SCH (10:00)
[2024-05-21] MEDS ORDERED: Enoxaparin Sodium 40 MG/0.4 ML SYR SC SCH (10:00)
[2024-05-21] MEDS ORDERED: Ketorolac Tromethamine 30 MG/ML VIAL IV ONE (10:25)
[2024-05-21 12:00] VITALS: BP 149/74
[2024-05-21 16:00] VITALS: BP 144/84
[2024-05-21] MEDS ORDERED: Chlordiazepoxide Hydrochlori 25 MG CAP PO PRN (16:00)
[2024-05-21] MEDS ORDERED: Ketorolac Tromethamine 15 MG/ML VIAL IV PRN (16:55)
[2024-05-21] MEDS ORDERED: Buprenorphine Hydrochloride 2 MG TAB SL SCH (18:00)
[2024-05-21] MEDS ORDERED: ALGINATE DRESSING/CME-CELL 4X4 1 EACH BANDAGE T ONE (18:13)
[2024-05-21 20:13] VITALS: BP 140/70
[2024-05-22] VITALS: BP 132/52
[2024-05-22 06:22] LABS: BUN 9 mg/dl (9-23); CHLORIDE 107 mmol/L (98-107); POTASSIUM 4.2 mmol/L (3.4-5.1)
[2024-05-22 06:23] LABS: HEMATOCRIT 29.2 % (37.0-47.0); MEAN CELL VOLUME 82.7 fl (81.0-99.0); MEAN CORPUSCULAR HGB 24.1 pg (27.0-31.0); MEAN CORPUSCULAR HGB CONC 29.1 g/dl (33.0-37.0); MEAN PLATELET VOLUME 10.8 fl (9.6-12.3); PLATELET COUNT AUTOMATED 325 10*3/uL (130-400); RED BLOOD COUNT 3.53 10*6/uL (4.10-5.10); RED CELL DISTRI WIDTH 14.2 % (0-14.5); WHITE BLOOD COUNT 8.4 10*3/uL (4.8-10.8)
[2024-05-22 07:13] LABS: MANUAL DIFF REFLEX YES
[2024-05-22 07:44] LABS: BASOPHILS 2 % (0-1); PLATELET SUFFICIENCY NORMAL (NORMAL); ROULEAUX SLIGHT; TOTAL CELLS COUNTED 100 #CELLS
[2024-05-22 08:00] VITALS: BP 140/84
[2024-05-22 09:23] LABS: URINE AMPHETAMINES Negative (1000ng/ml); URINE BARBITURATES Negative (200ng/ml); URINE BENZODIAZEPINES Positive (200ng/ml); URINE CANNABINOIDS (THC) Positive (50ng/ml); URINE COCAINE Negative (300ng/ml); URINE METHADONE Negative (300ng/ml); URINE OPIATES Negative (300ng/ml); URINE PHENCYCLIDINE Negative (25ng/ml)
[2024-05-22 12:00] VITALS: BP 150/97
[2024-05-22] MEDS ORDERED: ALGINATE DRESSING/CME-CELL 4X4 1 EACH BANDAGE T ONE (14:22)
[2024-05-22 16:00] VITALS: BP 141/95
[2024-05-22 20:00] VITALS: BP 149/98
[2024-05-22] MEDS ORDERED: Buprenorphine Hydrochloride 2 MG TAB SL SCH (22:00)
[2024-05-23] VITALS: BP 147/77
[2024-05-23] MEDS ORDERED: Vancomycin Hydrochloride 1,000 MG in SODIUM CHLORIDE 0.9% 250 ML IV SCH
[2024-05-23 06:10] LABS: HEMATOCRIT 29.9 % (37.0-47.0); MEAN CELL VOLUME 81.9 fl (81.0-99.0); MEAN CORPUSCULAR HGB 23.6 pg (27.0-31.0); MEAN CORPUSCULAR HGB CONC 28.8 g/dl (33.0-37.0); MEAN PLATELET VOLUME 10.2 fl (9.6-12.3); PLATELET COUNT AUTOMATED 352 10*3/uL (130-400); RED BLOOD COUNT 3.65 10*6/uL (4.10-5.10); RED CELL DISTRI WIDTH 13.8 % (0-14.5); WHITE BLOOD COUNT 8.2 10*3/uL (4.8-10.8)
[2024-05-23 06:25] LABS: MANUAL DIFF REFLEX YES
[2024-05-23 06:43] LABS: BUN 12 mg/dl (9-23); CHLORIDE 106 mmol/L (98-107); POTASSIUM 3.7 mmol/L (3.4-5.1)
[2024-05-23 07:11] LABS: BASOPHILS 1 % (0-1); PLATELET SUFFICIENCY NORMAL (NORMAL); TOTAL CELLS COUNTED 100 #CELLS
[2024-05-23 07:12] LABS: OVALOCYTES FEW; POLYCHROMASIA SLIGHT
[2024-05-23 08:00] VITALS: BP 164/98
[2024-05-23 12:00] VITALS: BP 152/96
[2024-05-23 16:00] VITALS: BP 154/91
[2024-05-23] MEDS ORDERED: KIMYRSA1200 MG IV (18:41)
[2024-05-23 20:00] VITALS: BP 141/77
[2024-05-24] VITALS: BP 139/89
[2024-05-24 07:46] LABS: HEMATOCRIT 32.6 % (37.0-47.0); MANUAL DIFF REFLEX YES; MEAN CELL VOLUME 80.7 fl (81.0-99.0); MEAN CORPUSCULAR HGB 23.8 pg (27.0-31.0); MEAN CORPUSCULAR HGB CONC 29.4 g/dl (33.0-37.0); MEAN PLATELET VOLUME 9.6 fl (9.6-12.3); PLATELET COUNT AUTOMATED 455 10*3/uL (130-400); RED BLOOD COUNT 4.04 10*6/uL (4.10-5.10); RED CELL DISTRI WIDTH 13.8 % (0-14.5); WHITE BLOOD COUNT 9.5 10*3/uL (4.8-10.8)
[2024-05-24] MEDS ORDERED: VANCOMYCIN/WATER FOR INJ (PEG) 300 ML IV SCH (08:10)
[2024-05-24 08:40] LABS: OVALOCYTES FEW; PLATELET SUFFICIENCY HIGH (NORMAL); POLYCHROMASIA SLIGHT; TOTAL CELLS COUNTED 100 #CELLS
[2024-05-24 12:00] VITALS: BP 159/93
[2024-05-24] MEDS ORDERED: ZYVOX600 MG PO (15:03)
[2024-05-24 16:00] VITALS: BP 161/112
== END 2024-05-24 17:30 | disposition home or self-care (01) | DRG 871 ==
LOC: ED 13:52 → EDHOLD 16:31 → 4E 16:31
PROVIDERS: Emergency Medicine; Student in an Organized Health Care Education/Training Program; ADMIT Family Medicine; ATTEND Family Medicine
DX: A41.89 Other specified sepsis (principal); E43 Unspecified severe protein-calorie malnutrition; L03.114 Cellulitis of left upper limb; L02.414 Cutaneous abscess of left upper limb; D64.9 Anemia, unspecified; I10 Essential (primary) hypertension; F12.10 Cannabis abuse, uncomplicated; F17.210 Nicotine dependence, cigarettes, uncomplicated; R73.9 Hyperglycemia, unspecified; F11.29 Opioid dependence with unspecified opioid-induced disorder; B19.20 Unspecified viral hepatitis C without hepatic coma; A49.02 Methicillin resistant Staphylococcus aureus infection, unspecified site; R65.20 Severe sepsis without septic shock; Z71.6 Tobacco abuse counseling; Z79.899 Other long term (current) drug therapy; Z79.01 Long term (current) use of anticoagulants; Z79.2 Long term (current) use of antibiotics; Z90.49 Acquired absence of other specified parts of digestive tract; Z98.891 History of uterine scar from previous surgery; Z98.890 Other specified postprocedural states; Z83.3 Family history of diabetes mellitus; Z82.49 Family history of ischemic heart disease and other diseases of the circulatory system; Z68.39 Body mass index [BMI] 39.0-39.9, adult

== ENCOUNTER 2025-03-17 17:03 | Emergency (ER) | payer OTHER ==
[~2025-03-17] VITALS: Ht 152.4 cm; Wt 127.0 kg
[~2025-03-17 17:03] MED LIST changes: +KIMYRSA1200 MG IV; +SUBOXONE 8 MG-1 EACH BC; +ZYVOX600 MG PO
[2025-03-17 17:50] LABS: BILIRUBIN Negative (Negative); BLOOD Trace-Lysed (Negative); CLARITY Turbid (Clear); COLOR Yellow (Yellow); KETONE Trace (Negative); LEUKO ESTERASE 3+ (Negative); NITRITE Positive (Negative); PH 6.5 (4.5-8.0); SPECIFIC GRAVITY >= 1.030 (1.001-1.030); UROBILINOGEN 1.0 E.U./dl (0.0-1.0)
[2025-03-17 18:04] LABS: BACTERIA 4+; CALCIUM OXALATE CRYSTALS Trace; WBC 51-100 wbc/hpf (0-5)
[2025-03-17] MEDS ORDERED: SODIUM CHLORIDE 0.9% 1,000 ML IV SCH (18:20)
[2025-03-17 18:21] LABS: BASO # 0.1 10*3/uL (0.0-0.1); BASO % 0.9 % (0.0-1.0); EOS # 0.1 10*3/uL (0.0-0.4); EOS % 1.5 % (1.0-4.0); MEAN CELL VOLUME 82.1 fl (81.0-99.0); MEAN CORPUSCULAR HGB 24.2 pg (27.0-31.0); MEAN PLATELET VOLUME 10.9 fl (9.6-12.3); MONO # 0.9 10*3/uL (0.1-1.0); MONO % 9.5 % (3.0-9.0); NEUT # 5.2 10*3/uL (2.3-7.9); NEUT % 56.8 % (47.0-73.0); NUCLEATED RED BLOOD CELL 0.0 % (0.0-0.0); NUCLEATED RED BLOOD CELL 0.0 10*3/uL (0.0-0.0); PLATELET COUNT AUTOMATED 337 10*3/uL (130-400); RED CELL DISTRI WIDTH 13.6 % (0-14.5)
[2025-03-17 18:36] LABS: BUN 9 mg/dl (9-23)
[2025-03-17] MEDS ORDERED: CIPRO500 MG PO (18:43)
[2025-03-17] MEDS ORDERED: Water, Sterile 10 ML VIAL ONE (19:05)
== END 2025-03-17 18:46 | disposition home or self-care (01) ==
LOC: ED 17:03
PROVIDERS: Nurse Practitioner Family
DX: N39.0 Urinary tract infection, site not specified (principal); F17.210 Nicotine dependence, cigarettes, uncomplicated; F11.90 Opioid use, unspecified, uncomplicated; Z86.19 Personal history of other infectious and parasitic diseases